=== PATIENT | male | born 1950 | race Caucasian/White ===

== ENCOUNTER → 2018-10-06 | Outpatient (CLI) | payer OTHER ==
[~2018-10-06] VITALS: Ht 177.8 cm; Wt 74.8 kg
[~2018-10-06] MED LIST: ASPIRIN325 PO; B-100 COMPLEX1 EAC1 PO; COREG PO; DIOVAN160 MG PO; FISHOIL PO; HYDROCHLOROTHIA25 M2 PO; MULTIVITAMINS PO; NIACIN 500 MG500 M1 PO; NORVASC 5 MG TAB5 MG PO; PLAVIX 75 MG TA75 MG PO; VITAMIN D1000 UNI1 PO; VITAMIN E400 UNIT PO; ZOCOR40 MG PO
--- NOTE | ~2018-10-06 | P ---
[facility] [place] [address] PROCEDURE REPORT Name: MIKALA BARRIGA III Room #: [facility]#: [id number] Admission: 10/06/18 ������������������ Attend Phys: Perry Chatterjee MD Discharge: ������������������ Date of : 50 Report #: [id number] THIS REPORT FOR: //name// CC: Suleiman Chatterjee HISTORY OF PRESENT ILLNESS: The patient is a 68-year-old male with a history of recurrent syncopal episodes. He has had a recent nurse monitoring showing some short runs of what appears to be an atrial tachycardia and some short runs of nonsustained VT. He has a normal ejection fraction by echo. He is here for EP study. PROCEDURES PERFORMED: 1. Comprehensive EP study with induction, CPT Code 10894. 2. Program stimulation and pacing after IV, CPT Code 58165. 3. Implantation of an implantable loop recorder, CPT Code 63713. ANESTHESIA: The patient underwent MAC anesthesia with no anesthesia-related complications. DESCRIPTION OF PROCEDURE: The patient underwent informed consent. We discussed the details of the procedure including the risks, which include but not limited to bleeding, infection, vascular damage, stroke, W[place] and pneumothorax. He understood these risks and is willing to proceed. The patient was brought to the EP laboratory in fasting and sedated state and prepped and draped in sterile fashion. I placed 3 sheaths in the right femoral vein, placed an 8 and two 6-Hungarian short sheaths. Under fluoroscopy, I placed a 3 quadripolar catheters at the HRA, His, and RV positions. Basic EP study was performed. At baseline, the patient was in sinus rhythm with sinus cycle length of 885 milliseconds, AZ interval 145 milliseconds, QRS duration 90 milliseconds, QT interval 410 milliseconds, AH interval 78 milliseconds, and HV interval of 42 milliseconds. Atrial pacing was performed and AV block was noted at 380 milliseconds, atrial ERP was noted at 280 milliseconds with [address] cycle length. Sinus node recovery time pacing at 300 milliseconds was 1267 milliseconds. Ventricular pacing was performed and VA block was noted at 290 milliseconds. Ventricular ERP was noted at 230 milliseconds at a [address] cycle length. VA conduction appeared to be both midline and decremental. No SVT was induced. Next, ventricular stimulation was performed at 2 cycle lengths including 500 and 400 milliseconds with up to 3 ventricular extrastimuli. No VT or VF was induced. Next, isoproterenol was initiated at 1 mcg per minute. Atrial ERP was noted at 270 milliseconds at [address] cycle length. AV block was noted at 330 milliseconds. Ventricular ERP was noted at 220 milliseconds at [address] cycle length. Isoproterenol was then increased to 2 mcg per minute and AV block was noted at 310 milliseconds. As such, we could not induce SVT, atrial [facility] [address] [place] [address] PROCEDURE REPORT Name: MIKALA BARRIGA [facility] Room #: [facility]#: [id number] Admission: 10/06/18 ������������������ Attend Phys: Perry Chatterjee MD Discharge: ������������������ Date of : 50 Report #: [id number] fibrillation, nor did we demonstrate any significant SA node dysfunction. Furthermore, there was no ventricular arrhythmias. Therefore, as previously discussed with the patient, we decided to proceed with implantation of an implantable loop recorder. The patient was prepped in a sterile fashion. A small incision was made at the third intercostal space and the [employer] implantable loop recorder was injected under the skin. A single layer of suture was performed at the skin layer and surgical glue was placed. The device was a [employer] model number [id number], serial number [id number]. The device was programmed to its nominal settings. All catheters and sheaths were pulled and hemostasis was obtained and the patient awoke neurologically and hemodynamically intact with no complications. CONCLUSIONS: 1. Normal EP study with no inducible SVT, VT and no evidence of sick sinus syndrome or advanced AV niecy disease. 2. Successful implantation of an implantable loop recorder. ��������������������������������������������� ���������������������������������������� By: ��������������������������������������������� [id number] Perry Chatterjee MD /eileen
[2018-10-06 07:06] VITALS: BP 167/82
[2018-10-06 07:53] LABS: ABSOLUTE NEUTROPHILS 4.6 thou/uL (1.4-8.2); BASOPHILS 0.8 % (0.0-2.0); EOSINOPHILS 4.2 % (0.0-3.0); HEMATOCRIT 44.3 % (42.0-52.0); HEMOGLOBIN 15.2 gm/dL (14.0-18.0); LYMPHOCYTES 20.9 % (24.0-44.0); MCH 29.1 pg (26.0-34.0); MCHC 34.3 g/dL (28.0-37.0); MCV 84.8 fL (80.0-100.0); MONOCYTES 10.4 % (1.0-8.0); PLATELET COUNT 153 thou/uL (150-400); POLYS 63.7 % (36.0-66.0); RBC 5.23 mil/uL (4.50-6.00); RDW 14.2 % (10.5-14.5); WBC 7.2 thou/uL (4.0-11.0)
[2018-10-06 07:59] LABS: CALCIUM 9.2 mg/dL (8.5-10.1); CREATININE 1.4 mg/dL (0.7-1.3)
[2018-10-06 08:02] LABS: APTT 24.5 Seconds (24.5-32.8)
[2018-10-06 08:05] LABS: ALBUMIN 3.6 g/dL (3.4-5.0); TOTAL BILIRUBIN 0.4 mg/dL (<0.1-1.0); TOTAL PROTEIN 6.5 g/dL (6.4-8.2)
== END | disposition home or self-care (01) ==
LOC: CATH 06:39
PROVIDERS: Internal Medicine Cardiovascular Disease
DX: I47.1 Supraventricular tachycardia (principal); I12.9 Hypertensive chronic kidney disease with stage 1 through stage 4 chronic kidney disease, or unspecified chronic kidney disease; N18.9 Chronic kidney disease, unspecified; E78.5 Hyperlipidemia, unspecified; Z87.891 Personal history of nicotine dependence; Z98.890 Other specified postprocedural states; I42.9 Cardiomyopathy, unspecified
CPT/HCPCS: 62110; 62900; 70005

== ENCOUNTER → 2020-01-05 | Outpatient (CLI) | payer OTHER | LOC: SJCVCIMAG 12-01 10:06 | DX: I65.23 Occlusion and stenosis of bilateral carotid arteries (principal); I70.203 Unspecified atherosclerosis of native arteries of extremities, bilateral legs; I08.1 Rheumatic disorders of both mitral and tricuspid valves; N28.1 Cyst of kidney, acquired; I25.10 Atherosclerotic heart disease of native coronary artery without angina pectoris; I10 Essential (primary) hypertension; I70.1 Atherosclerosis of renal artery; E78.5 Hyperlipidemia, unspecified; I71.4 Abdominal aortic aneurysm, without rupture; Z79.899 Other long term (current) drug therapy ==

== ENCOUNTER → 2020-04-30 | Outpatient (CLI) | payer OTHER | LOC: SJCVC 11:32 | PROVIDERS: ATTEND Internal Medicine | DX: I25.10 Atherosclerotic heart disease of native coronary artery without angina pectoris (principal); E78.5 Hyperlipidemia, unspecified; I95.1 Orthostatic hypotension; I70.1 Atherosclerosis of renal artery; I12.9 Hypertensive chronic kidney disease with stage 1 through stage 4 chronic kidney disease, or unspecified chronic kidney disease; N18.3 Chronic kidney disease, stage 3 (moderate) ==

== ENCOUNTER → 2020-07-10 | Outpatient (CLI) | payer OTHER | LOC: SJCVC 11:12 | PROVIDERS: ATTEND Internal Medicine | DX: I25.10 Atherosclerotic heart disease of native coronary artery without angina pectoris (principal); I10 Essential (primary) hypertension; I71.4 Abdominal aortic aneurysm, without rupture; I42.9 Cardiomyopathy, unspecified; I70.1 Atherosclerosis of renal artery; I65.23 Occlusion and stenosis of bilateral carotid arteries; I47.2 Ventricular tachycardia; I47.1 Supraventricular tachycardia; E78.00 Pure hypercholesterolemia, unspecified; I73.9 Peripheral vascular disease, unspecified; Z79.899 Other long term (current) drug therapy; Z87.891 Personal history of nicotine dependence ==

== ENCOUNTER → 2020-08-28 | Outpatient (CLI) | payer OTHER | LOC: SJCVCIMAG 07:43 | PROVIDERS: ATTEND Internal Medicine | DX: I49.3 Ventricular premature depolarization (principal); I10 Essential (primary) hypertension; I25.10 Atherosclerotic heart disease of native coronary artery without angina pectoris; I70.1 Atherosclerosis of renal artery; E78.00 Pure hypercholesterolemia, unspecified; I71.4 Abdominal aortic aneurysm, without rupture; I72.3 Aneurysm of iliac artery; Z79.899 Other long term (current) drug therapy; Z87.891 Personal history of nicotine dependence ==